=== PATIENT | male | born 1970 | race Caucasian/White ===

== ENCOUNTER 2018-11-22 16:51 | Emergency (ER) | payer OTHER ==
[~2018-11-22] VITALS: Ht 170.2 cm; Wt 68.6 kg
[~2018-11-22 16:51] MED LIST: NOHOMEMEDICATIONS
[2018-11-22] MEDS ORDERED: ACETAMINOPHEN-1 EAC1 PO (19:38)
[2018-11-22] MEDS ORDERED: PREDNISONE 10 M10 MG PO (19:38)
[2018-11-22] MEDS ORDERED: KEFLEX500 M1 PO (19:38)
[2018-11-22 19:49] VITALS: BP 119/83
== END 2018-11-22 19:50 | disposition home or self-care (01) ==
LOC: M.ERS 16:51
DX: L03.114 Cellulitis of left upper limb (principal); M77.9 Enthesopathy, unspecified; F17.200 Nicotine dependence, unspecified, uncomplicated; Z88.0 Allergy status to penicillin

== ENCOUNTER 2018-11-22 20:50 | Emergency (ER) | payer OTHER ==
[~2018-11-22] VITALS: Ht 170.2 cm; Wt 65.8 kg
[~2018-11-22 20:50] MED LIST changes: +ACETAMINOPHEN-1 EAC1 PO; +KEFLEX500 M1 PO; +PREDNISONE 10 M10 MG PO
[2018-11-22 22:09] VITALS: BP 108/67
== END 2018-11-22 22:10 | disposition home or self-care (01) ==
LOC: M.ERS 20:50
DX: R22.0 Localized swelling, mass and lump, head (principal); F17.200 Nicotine dependence, unspecified, uncomplicated; Z88.0 Allergy status to penicillin

== ENCOUNTER 2019-06-12 00:13 | Emergency (ER) | payer OTHER ==
[~2019-06-12] VITALS: Ht 170.2 cm; Wt 68.0 kg
[2019-06-12] MEDS ORDERED: CIPRO250 M1 PO (00:20)
[2019-06-12] MEDS ORDERED: BACTRIM DS TAB1 EACH PO (01:07)
[2019-06-12] MEDS ORDERED: NORCO 7.5-3251 EACH PO (01:07)
[2019-06-12] MEDS ORDERED: KEFLEX500 M1 PO (01:07)
[2019-06-12 01:19] VITALS: BP 125/78
== END 2019-06-12 01:21 | disposition home or self-care (01) ==
LOC: M.ERS 00:13
DX: L02.411 Cutaneous abscess of right axilla (principal); Z88.0 Allergy status to penicillin